=== PATIENT | male | born 1995 | race African-American/Black ===

== ENCOUNTER 2017-04-11 14:38 | Emergency (ER) | payer OTHER ==
[~2017-04-11] VITALS: Ht 172.7 cm; Wt 68.0 kg
[~2017-04-11 14:38] MED LIST: AUGMENTIN 500M500 MG PO
--- NOTE | 2017-04-11 14:51 | ED HAND/WRIST INJURY COMPLAINT ---
History of Present Illness General Chief Complaint: Hand or Wrist Injury Stated Complaint: INJURY TO R HAND, "UNABLE TO GRASP OBJECTS" Source: patient, old records Exam Limitations: no limitations Vital Signs & Intake/Output Vital Signs & Intake/Output Vital Signs Date Time Temp Pulse Resp B/P B/P Pulse O2 O2 Flow FiO2 Mean Ox Delivery Rate 04/11 1512 98.9 64 15 124/74 100 Room Air 04/11 1453 99 Room Air 04/11 1442 97.7 68 20 126/76 97 Room Air ED Intake and Output 04/12 0000 04/11 1200 Intake Total 0 Output Total Balance 0 Intake, Oral 0 Patient 150 lb Weight Weight Reported by Patient Measurement Method Allergies Coded Allergies: NO KNOWN ALLERGIES (10/13/15) Reconcile Medications Augmentin (Augmentin 500-125 Tablet) 500 MG TAB 1 TAB PO TID facial wounds Triage Note: STATES HE 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 STATES YESTERDAY HE TRIED TO OPEN A DOOR AND FELT A POP. STATES NOW UNABLE TO GRASP OBJECTS Triage Nurses Notes Reviewed? yes Occurred: just prior to arrival Duration: week(s): (1), constant Timing: recent history Injury Environment: work Severity: moderate Severity Numbers: 6 Pain/Injury Location: Right: Hand. 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 Today he was having difficulty gripping objects. No history of similar symptoms in the past. He is right-hand dominant. There is no recent fall or trauma. He is not taken anything or soccer for the symptoms until today no radiation of pain no other joint pain fever chills. (JAMES ART,VÍCTOR) Past History Travel History Traveled to [place] past 21 day No Medical History Any Pertinent Medical History? 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 No (VÍCTOR REYES) Review of Systems Review of Systems Constitutional: Reports: see HPI. All Other Systems: Reviewed and Negative Comments Review of systems: See HPI, All other systems negative. Constitutional, no chills no fever, no malaise no weight loss HEENT: No visual changes no sore throat no congestion, no ear pain Cardiovascular: No chest pain , no palpitation , no orthopnea Skin: no rashes, no change in skin Respiratory: No dyspnea no cough no sputum no hemoptysis GI: No nausea no vomiting, no diarrhea, no bloating/constipation : No dysuria No hematuria, no frequency, no discharge Muscle skeletal: No joint pain, no joint swelling, no back pain, no neck pain, Neurologic: No numbness no confusion, no headache Psych: No stress no depression,. Heme/endocrine: No bruising no bleeding Immunology: No lymphadenopathy (VÍCTOR REYES) Physical Exam Physical Exam General Appearance: well developed/nourished, no apparent distress, alert, awake Hand Left: normal inspection Hand Right: normal inspection Comments: Well-developed well-nourished patient in no apparent distress. HEENT: Atraumatic, extraocular motion intact Neck: Supple, FROM Back: FROM Cardiovascular: Regular rate and rhythms no murmurs rubs or gallops, Respiratory:No respiratory distress. Patient speaking in full complete sentences. Breath sounds clear to auscultation bilaterally: NO W/R/R Shoulder: Atraumatic/Stable. FROM . Elbow: Atraumatic/stable. FROM. No laxity Upper arm/Forearm: Atraumatic. Nontender. No edema, 5 out of 5 pattern fitter strength noted to bilateral upper extremities Hand/Wrist: Atraumatic/stable. Skin intact. FROM, neg phalens Pulses: Normal/equal radial pulses bilaterally. Brisk cap refill Lower Extremities: full range of motion Neuro: awake, alert, and oriented to person, place and time. There were no obvious focal neurologic abnormalities. Skin: Warm & dry;No appreciable rash on exposed skin Psych: Mood affect normal, normal memory normal judgment. (VÍCTOR REYES) Progress Differential Diagnosis: contusion, compartment syndrome, dislocation, fracture, sprain, tendontiis, carpal tunnel Plan of Care: Orders Procedure Date/time Status Durable Medical Equipment 04/11 150 Active Diagnostic Imaging: Viewed by Me: Radiology Read. Discussed w/RAD: Radiology Read. Radiology Impression: PATIENT: CAMERON LIU PRESENT AGE: 22 PATIENT ACCOUNT NO: [id number] : 94 LOCATION: [facility] ORDERING PHYSICIAN: VÍCTOR ART SERVICE DATE: 04/11/17-1442 EXAM TYPE: RAD - XRY- HAND, RIGHT EXAMINATION: XR HAND, RIGHT CLINICAL INFORMATION: Pain. Sprain. COMPARISON: None TECHNIQUE: AP, lateral, and oblique views of the right hand. FINDINGS: Bone mineralization is normal. No acute fracture or malalignment. Joint spaces are well-preserved. There is a chronic 0.4 cm osseous fragment at the tip of the ulnar styloid which either corresponds to an old ulnar styloid fracture or a accessory ossicle. IMPRESSION: 1. No acute fracture or malalignment in the right hand. 2. Chronic 4 mm osseous fragment the tibial and styloid, either an old nonunited fracture fragment or an accessory ossicle. Old fracture is favored. DICTATED BY: MAIKEL CASTELLANOS MD DATE/TIME DICTATED:04/11/171517 FLEXOGRAPHIC PRINTING PRESS OPERATOR:CURT DATE/TIME TRANSCRIBED:04/11/171517 CONFIDENTIAL, DO NOT COPY WITHOUT APPROPRIATE AUTHORIZATION. <Electronically signed in Other Vendor System> SIGNED BY: MAIKEL CASTELLANOS MD 04/11/17 1524 (VÍCTOR REYES) Departure Departure Time of Disposition: 1504 Disposition: HOME OR SELF CARE Condition: Stable Clinical Impression Primary Impression: Tendonitis Referrals: PATIENT HAS NO PRIMARY CARE DR (PCP/Family) Additional Instructions: Rest, ice, Tylenol Motrin for pain and brace as discussed, follow up with your primary care physician return to ER with any concerns. Departure Forms: Customer Survey General Discharge Information (VÍCTOR REYES) PA/SUPERVISOR CELL MAINTENANCE Co-Sign Statement Statement: ED Attending supervision documentation- [] I saw and evaluated the patient. I have also reviewed all the pertinent lab results and diagnostic results. I agree with the findings and the plan of care as documented in the PA's/SUPERVISOR CELL MAINTENANCE's documentation. [X] I have reviewed the ED Record and agree with the PA's/SUPERVISOR CELL MAINTENANCE's documentation. [] Additions or exceptions (if any) to the PAs/SUPERVISOR CELL MAINTENANCE's note and plan are summarized below: [] (ANNAMARIE KEARNS,MARILYNN)
[2017-04-11 15:12] VITALS: BP 124/74
--- NOTE | 2017-04-11 15:24 | RADIOLOGY REPORT ---
EXAMINATION: XR HAND, RIGHT CLINICAL INFORMATION: Pain. Sprain. COMPARISON: None TECHNIQUE: AP, lateral, and oblique views of the right hand. FINDINGS: Bone mineralization is normal. No acute fracture or malalignment. Joint spaces are well-preserved. There is a chronic 0.4 cm osseous fragment at the tip of the ulnar styloid which either corresponds to an old ulnar styloid fracture or a accessory ossicle. IMPRESSION: 1. No acute fracture or malalignment in the right hand. 2. Chronic 4 mm osseous fragment the tibial and styloid, either an old nonunited fracture fragment or an accessory ossicle. Old fracture is favored.
== END 2017-04-11 15:12 ==
LOC: ERH 14:38
DX: M77.9 Enthesopathy, unspecified (principal)
CPT/HCPCS: 73130-RT